=== PATIENT | male | born 2000 | race African-American/Black ===

== ENCOUNTER 2023-04-17 19:13 | Emergency (ER) | payer SELFPAY ==
[~2023-04-17] VITALS: Ht 172.7 cm; Wt 70.0 kg
[2023-04-17 19:18] VITALS: BP 132/87; PULSE 80; RESP 14; TEMP 98.4; O2SAT 98
[2023-04-17] MEDS ORDERED: SERT-422 MT (19:24)
== END 2023-04-17 19:51 | disposition home or self-care (01) ==
LOC: ER 19:13
DX: F32.9 Major depressive disorder, single episode, unspecified (principal); J45.909 Unspecified asthma, uncomplicated; Z76.0 Encounter for issue of repeat prescription
CPT/HCPCS: 99283